=== PATIENT | female | born 1955 ===

== ENCOUNTER 2018-12-13 16:35 | Inpatient (IN) ==
[2018-12-13] MEDS ORDERED: LIDOCAINE 1% 20 ML VIAL ONE (19:43)
[2018-12-13] MEDS ORDERED: fentaNYL 100 MCG/2 ML VIAL ONE (19:43)
[2018-12-13] MEDS ORDERED: MIDAZOLAM 2 MG/2 ML VIAL ONE (19:43)
[2018-12-13] MEDS ORDERED: ONDANSETRON 4 MG/2 ML VIAL IV PRN (19:46)
[2018-12-13] MEDS ORDERED: GLUCAGON 1 MG VIAL IM PRN (19:58)
[2018-12-13] MEDS ORDERED: DEXTROSE 50% 25 GM/50 ML SYRINGE IV PRN (19:58)
[2018-12-13] MEDS ORDERED: hydrALAZINE 20 MG/1 ML VIAL IV PRN (20:02)
[2018-12-13] MEDS: INSULIN LISPRO 100 UNIT/ML SUBCUT SCH (22:20)
[2018-12-13] MEDS: CALCIUM ACETATE 667 MG CAPSULE PO SCH (22:28)
[2018-12-14] MEDS ORDERED: BENZOCAINE/MENTHOL LOZENGE 18/BOX PO PRN (00:29)
[2018-12-14 02:52] VITALS: BP 181/51
[2018-12-14 04:56] LABS: Basophils % 0.5 % (0.0-0.8); Eosinophils # 0.1 10*3/uL (0.0-0.87); Eosinophils % 1.8 % (0.00-10.9); Hematocrit 33.6 VOL% (35.7-47.0); Hemoglobin 11.1 GM/DL (12.0-16.0); Immature Granulocytes % 0.4 %; Immature Granulocytes Absolute 0.02 #; Lymphocytes # 0.9 10*3/uL (1.4-4.0); Lymphocytes % 16.7 % (21.3-54.2); Mean Corpuscular Hemoglobin 35 PG (27-34); Mean Platelet Volume 10.7 FL (9.6-12.0); Monocytes # 0.3 10*3/uL (0.11-0.8); Monocytes % 6.2 % (1.7-12.7); Neutrophils # 4.1 10*3/uL (1.4-7.4); Neutrophils % 74.4 % (38.7-73.9); Platelet Count 138 T/CUMM (130-400); Red Cell Distribution Width 13.1 % (9.3-17.3); White Blood Count 5.5 T/CUMM (4-12)
[2018-12-14 05:26] LABS: Calcium 8.7 MG/DL (8.5-10.1); Osmolality,Calculated 290.4 MOS/KG (273-304); Potassium 4.2 MMOL/L (3.5-5.1)
[2018-12-14] MEDS ORDERED: ceFAZolin 1,000 MG VIAL IRRIG ONE (08:15)
[2018-12-14] MEDS: INSULIN LISPRO 100 UNIT/ML SUBCUT SCH ×4 (08:50→21:12)
[2018-12-14] MEDS: CALCIUM ACETATE 667 MG CAPSULE PO SCH ×5 (08:51→21:12)
[2018-12-14 08:59] LABS: Troponin I 0.116 NG/ML (0.00-0.045)
[2018-12-14] MEDS ORDERED: LIDOCAINE 1% 20 ML VIAL ONE (12:19)
[2018-12-14] MEDS ORDERED: HEPARIN/NACL 0.9% 2 UNITS/ML 500 ML IV ONE (12:19)
[2018-12-14] MEDS ORDERED: TISSUE ADHESIVE 1 EACH APPLICATOR TOP ONE (12:19)
[2018-12-14] MEDS ORDERED: ceFAZolin 1,000 MG VIAL ONE (12:19)
[2018-12-14] MEDS: LOSARTAN 50 MG TABLET PO SCH (12:28)
[2018-12-14] MEDS: ASPIRIN EC 81 MG TABLET PO SCH (12:28)
[2018-12-14] MEDS: CINACALCET 30 MG TABLET PO SCH (12:29)
[2018-12-14] MEDS ORDERED: ACETAMINOPHEN 325 MG TABLET PO PRN (13:47)
[2018-12-14] MEDS ORDERED: oxyCODONE/ACETAMINOPHEN 5-325 MG TABLET PO PRN (13:47)
[2018-12-14] MEDS ORDERED: PROPOFOL 200 MG/20 ML VIAL IV ONE (14:32)
[2018-12-14] MEDS ORDERED: ePHEDrine 50 MG/ML AMP ONE (14:32)
[2018-12-14] MEDS ORDERED: MIDAZOLAM 2 MG/2 ML VIAL ONE (14:32)
[2018-12-14] MEDS ORDERED: SODIUM CHLORIDE 0.9% 250 ML IV ONE (14:32)
[2018-12-15 05:09] LABS: Basophils % 0.6 % (0.0-0.8); Eosinophils # 0.1 10*3/uL (0.0-0.87); Eosinophils % 2.7 % (0.00-10.9); Hematocrit 32.9 VOL% (35.7-47.0); Hemoglobin 10.7 GM/DL (12.0-16.0); Immature Granulocytes % 0.4 %; Immature Granulocytes Absolute 0.02 #; Lymphocytes # 0.7 10*3/uL (1.4-4.0); Mean Corpuscular HGB Conc 32.5 GM/DL (32-36); Mean Corpuscular Hemoglobin 34 PG (27-34); Mean Corpuscular Volume 105.1 FL (87-102); Monocytes # 0.4 10*3/uL (0.11-0.8); Monocytes % 7.2 % (1.7-12.7); Neutrophils # 3.9 10*3/uL (1.4-7.4); Neutrophils % 75.1 % (38.7-73.9); Platelet Count 121 T/CUMM (130-400); Red Blood Count 3.13 MC/CUMM (3.8-5.5); Red Cell Distribution Width 13.2 % (9.3-17.3); White Blood Count 5.1 T/CUMM (4-12)
[2018-12-15 05:29] LABS: Calcium 8.6 MG/DL (8.5-10.1); Osmolality,Calculated 279.7 MOS/KG (273-304); Potassium 4.1 MMOL/L (3.5-5.1); Risk Ratio 4.93; VLDL CHOLESTEROL 43.4 MG/DL
[2018-12-15] MEDS: LOSARTAN 50 MG TABLET PO SCH (08:55)
[2018-12-15] MEDS: CALCIUM ACETATE 667 MG CAPSULE PO SCH ×3 (08:55→11:47)
[2018-12-15] MEDS: ASPIRIN EC 81 MG TABLET PO SCH (08:55)
[2018-12-15] MEDS: CINACALCET 30 MG TABLET PO SCH (08:56)
[2018-12-15] MEDS: INSULIN LISPRO 100 UNIT/ML SUBCUT SCH ×2 (08:56→11:18)
[2018-12-15] MEDS ORDERED: cephALEXin 500 MG CAPSULE PO SCH (09:00)
[2018-12-15] MEDS ORDERED: METOPROLOL SUCCINATE XL 25 MG TABLET PO SCH (10:30)
== END 2018-12-15 15:10 | disposition home or self-care (01) | DRG 242 ==
LOC: N.ED 16:35 → N.CC 19:39 → SUATTDRO 19:52 → N.EDINP 19:52 → N.CC 20:49
PROVIDERS: ADMIT Internal Medicine Nephrology; ATTEND Hospitalist

== ENCOUNTER 2022-03-25 03:56 | Observation (INO) ==
[2022-03-25] MEDS ORDERED: GLUCAGON 1 MG VIAL IM PRN ×2 (09:13)
[2022-03-25] MEDS ORDERED: ACETAMINOPHEN 325 MG TABLET PO PRN (09:13)
[2022-03-25] MEDS ORDERED: DEXTROSE 50% 25 GM/50 ML VIAL IV PRN (09:13)
[2022-03-25] MEDS ORDERED: ONDANSETRON 4 MG/2 ML VIAL IV PRN (09:13)
[2022-03-25] MEDS ORDERED: DEXTROSE 10% 250 ML BAG IV PRN (09:20)
[2022-03-25] MEDS: CINACALCET 30 MG TABLET PO SCH (10:45)
[2022-03-25] MEDS ORDERED: INSULIN LISPRO 100 UNIT/ML SUBCUT SCH (11:30)
[2022-03-25] MEDS: SEVELAMER CARBONATE 800 MG TABLET PO SCH ×2 (16:41→20:49)
[2022-03-25] MEDS: METOPROLOL SUCCINATE XL 25 MG TABLET PO SCH (20:49)
[2022-03-25] MEDS: LOSARTAN 25 MG TABLET PO SCH (20:49)
[2022-03-25] MEDS: APIXABAN 2.5 MG TABLET PO SCH (20:49)
[2022-03-25] MEDS ORDERED: LORATADINE 10 MG TABLET PO SCH (21:00)
[2022-03-26 04:42] LABS: Basophils % 1.2 % (0.0-0.8); Eosinophils # 0.1 10*3/uL (0.0-0.87); Eosinophils % 3.1 % (0.00-10.9); Hematocrit 31.5 VOL% (35.7-47.0); Hemoglobin 10.5 GM/DL (12.0-16.0); Immature Granulocytes % 0.4 %; Immature Granulocytes Absolute 0.01 #; Lymphocytes # 0.8 10*3/uL (1.4-4.0); Lymphocytes % 29.7 % (21.3-54.2); Mean Corpuscular HGB Conc 33.3 GM/DL (32-36); Monocytes # 0.2 10*3/uL (0.11-0.8); Monocytes % 9.3 % (1.7-12.7); Neutrophils % 56.3 % (38.7-73.9); Platelet Count 103 T/CUMM (130-400); White Blood Count 2.6 T/CUMM (4-12)
[2022-03-26 05:11] LABS: Albumin 2.7 G/DL (3.4-5.0); Bilirubin,Total 0.5 MG/DL (0.20-1.00); Calcium 8.8 MG/DL (8.5-10.1); Osmolality,Calculated 277.7 MOS/KG (273-304); Total Protein 6.5 G/DL (6.4-8.2)
[2022-03-26] MEDS: SEVELAMER CARBONATE 800 MG TABLET PO SCH ×2 (08:41→14:57)
[2022-03-26] MEDS: METOPROLOL SUCCINATE XL 25 MG TABLET PO SCH (08:41)
[2022-03-26] MEDS: CINACALCET 30 MG TABLET PO SCH (08:41)
[2022-03-26] MEDS: LOSARTAN 25 MG TABLET PO SCH (08:41)
[2022-03-26] MEDS: APIXABAN 2.5 MG TABLET PO SCH (08:42)
[2022-03-26 12:10] VITALS: BP 118/70
== END 2022-03-26 15:01 | disposition home or self-care (01) ==
LOC: N.TELEN → SUATTDRO 06:55
PROVIDERS: ADMIT Internal Medicine; ATTEND Emergency Medicine